=== PATIENT | female | born 1950 | race Caucasian/White ===

== ENCOUNTER 2019-04-14 15:49 | Emergency (ER) | payer MEDICARE, OTHER ==
[~2019-04-14] VITALS: Ht 154.9 cm; Wt 72.1 kg
[~2019-04-14 15:49] MED LIST: ADULT LOW DOSE81 MG PO; AMITRIPTYLINE H50 M2 PO; ANALGESIC325 MG PO; ASPIRIN; CAFFEINE; CALCIUM; CIPRO PO; CIPRO500 MG; CYMBALTA PO; DESYREL; DESYREL100 MG PO; DILAUDID 2 MG TA2 MG PO; EFFEXOR 5050 MG/1 T1 PO; EFFEXOR25 MG; ESTRACE1 MG PO; FLAGYL500 MG PO; GABAPENTIN300 MG PO; HYDROCODON-ACE1 EACH; MACROBID 100 M100 M2 PO; NEXIUM; NEXIUM40 MG PO; NORCO 5-325 TA1 EACH PO; NORCO 7.5-3251 EACH PO; ONDANSETRON HCL4 M2; PAIN RELIEF PM1 EAC2 PO; PANTOPRAZOLE SO40 M1; PERCOCET 5-3251 EACH PO; PHENERGAN 25 MG25 M1 PO; PHENERGAN 25 MG25 MG PO; PREMARIN0.625 MG PO; SKELAXIN 800 M800 M1 PO; TRAZODONE HCL100 MG PO; VALIUM5 MG PO; VENLAFAXIN75 MG/1 T2 PO; VICODIN 5-5001 EACH PO; VICODIN ES 7.51 EACH PO; ZOFRAN ODT4 MG PO
[2019-04-14] MEDS ORDERED: NORCO 5-325 TA1 EAC1 PO (17:14)
[2019-04-14 18:26] VITALS: BP 145/67
== END 2019-04-14 18:26 | disposition home or self-care (01) ==
LOC: M.ERS 15:49
DX: M25.562 Pain in left knee (principal); R07.81 Pleurodynia; M19.90 Unspecified osteoarthritis, unspecified site; K21.9 Gastro-esophageal reflux disease without esophagitis; Z90.710 Acquired absence of both cervix and uterus; Z88.8 Allergy status to other drugs, medicaments and biological substances; Z96.653 Presence of artificial knee joint, bilateral

== ENCOUNTER 2019-04-26 17:16 | Emergency (ER) | payer MEDICARE, OTHER ==
[~2019-04-26] VITALS: Ht 154.9 cm; Wt 77.1 kg
[~2019-04-26 17:16] MED LIST changes: +NORCO 5-325 TA1 EAC1 PO
[2019-04-26 19:01] LABS: URINE BILIRUBIN NEGATIVE (Negative); URINE BLOOD TRACE (Negative); URINE CLARITY CLEAR; URINE COLOR YELLOW; URINE GLUCOSE-RANDOM NEGATIVE (Negative); URINE KETONES NEGATIVE (Negative); URINE LEUKOCYTES-REFLEX NEGATIVE (Negative); URINE NITRITE-REFLEX NEGATIVE (Negative); URINE PROTEIN NEGATIVE (Negative); URINE SPECIFIC GRAVITY 1.025 (1.005-1.030); URINE UROBILINOGEN 0.2 E.U./dl (0.2-1.0)
[2019-04-26 19:29] LABS: ABSOLUTE EOSINOPHILS 0.3 thou/uL (0.0-0.7); ABSOLUTE LYMPHOCYTES 1.7 thou/uL (0.8-5.3); ABSOLUTE MONOCYTES 0.9 thou/uL (0.0-1.2); ABSOLUTE NEUTROPHILS 4.8 thou/uL (1.6-8.1); BASOPHILS 0.2 %; EOSINOPHILS 4.4 %; HEMATOCRIT 36.6 % (37.0-47.0); HEMOGLOBIN 12.9 gm/dL (12.0-15.0); LYMPHOCYTES 21.8 %; MCH 33.4 pg (26.0-34.0); MCHC 35.3 g/dL (28.0-37.0); MCV 94.6 fL (80.0-100.0); MONOCYTES 11.8 %; MPV 8.1 fl. (7.2-11.1); NUCLEATED RBCS 0 /100WBC; PLATELET COUNT* 236 thou/uL (150-400); POLYS 61.8 %; RBC 3.87 mil/uL (4.20-5.00); RDW-CV 13.1 % (10.5-14.5); WBC 7.8 thou/uL (4.0-11.0)
[2019-04-26 19:41] LABS: CALCIUM 9.1 mg/dL (8.5-10.1); CREATININE 0.7 mg/dL (0.6-1.3); POTASSIUM 3.9 mmol/L (3.5-5.1)
[2019-04-26 19:52] LABS: ALBUMIN 3.7 g/dL (3.4-5.0); TOTAL BILIRUBIN 0.4 mg/dL (<0.1-1.0); TOTAL PROTEIN 6.9 g/dL (6.4-8.2)
[2019-04-26] MEDS ORDERED: ZOFRAN4 MG PO (21:54)
[2019-04-26] MEDS ORDERED: ZANTAC 150MG T150 M1 PO (21:54)
[2019-04-26 22:04] VITALS: BP 132/48
--- NOTE | 2019-04-27 16:34 | EKG ---
[place] [address] ELECTROCARDIOGRAM REPORT Name: AMA LYN Room: [facility]#: [id number] Admission: 04/26/19 Attend Phys: Discharge: 04/26/19 Date of : 48 Date of Service: 04/26/19 1737 Report #: [id number] THIS REPORT FOR: //name// [facility] ED Test Date: 2019-04-26 Test Time: 17:37:15 Pat Name: AMA LYN Department: Room: Gender: F Trimmer Machine: RICHARD : 1950 Requested By: Sienna Masters Order Number: [id number] MD: Ronni Jeter Measurements Intervals [place] Rate: 59 P: 46 CA: 143 QRS: -6 QRSD: 114 T: 25 QT: 423 QTc: 419 Interpretive Statements Sinus rhythm Low voltage, precordial leads Consider anterior infarct Baseline wander in lead(s) V3 Compared to ECG 02/22/2017 10:54:16 Myocardial infarct finding now present Electronically Signed On 04-27-2019 16:33:00 [employer] by Ronni Jeter [email or web address] <ELECTRONICALLY SIGNED> By: Ronni Jeter MD, FAC 04/27/19 1633 1737 1737 Ronni Jeter MD, [facility] /EPI
== END 2019-04-26 22:04 | disposition home or self-care (01) ==
LOC: M.ERS 17:16
PROVIDERS: Nurse Practitioner Family; Physician Assistant
DX: R10.13 Epigastric pain (principal); R11.2 Nausea with vomiting, unspecified; K21.9 Gastro-esophageal reflux disease without esophagitis; F32.9 Major depressive disorder, single episode, unspecified; Z96.651 Presence of right artificial knee joint; Z90.710 Acquired absence of both cervix and uterus; Z98.890 Other specified postprocedural states; M19.90 Unspecified osteoarthritis, unspecified site; Z88.8 Allergy status to other drugs, medicaments and biological substances